=== PATIENT | male | born 1995 | race American Indian/Alaskan Native ===

== ENCOUNTER 2020-08-22 00:47 | Emergency (ER) | payer OTHER ==
--- NOTE | 2020-08-22 01:38 | Emergency Department Report ---
Blank Doc - Documentation Documentation: 24-year-old male that presents with nausea vomiting, EtOH with syncopal episode. Patient stated he is unsure how he passed out in his car. Patient otherwise denies any head injuries or headaches. 1- This initial assessment/diagnostic orders/clinical plan/ treatment(s) is/are subject to change based on pt's health status, clinical progression and re- assessment by fellow clinical providers in the ED. Further treatment and workup at subsequent clinical provers discretion. Patient/guardians urged not to elope from ED as their condition may be serious if not clinically assessed and managed. 2-labs 3-UA 4-EKG 5-CT head
[2020-08-22 02:38] LABS: Basophils % (Auto) 0.3 % (0.0-1.8); Eosinophils % (Auto) 0.1 % (0.0-4.3); Hematocrit 47.7 % (35.5-45.6); Hemoglobin 16.3 gm/dl (11.8-15.2); Lymphocytes # (Auto) 1.4 K/mm3 (1.2-5.4); Lymphocytes % (Auto) 14.8 % (13.4-35.0); Mean Corpuscular HGB Conc 34 % (32-34); Mean Corpuscular Volume 93 fl (84-94); Monocytes # (Auto) 0.5 K/mm3 (0.0-0.8); Monocytes % (Auto) 4.8 % (0.0-7.3); Platelet Count 277 K/mm3 (140-440); Red Blood Count 5.15 M/mm3 (3.65-5.03); Red Cell Distribution Width 12.8 % (13.2-15.2)
[2020-08-22 02:45] LABS: Alanine Aminotransferase 46 units/L (7-56); Albumin 4.6 g/dL (3.9-5); BUN/Creatinine Ratio 11; Blood Urea Nitrogen 10 mg/dL (9-20); Calcium 9.6 mg/dL (8.4-10.2); Hemolysis Index 6
--- NOTE | 2020-08-22 02:58 | Cat Scan Report ---
CT HEAD WITHOUT CONTRAST INDICATION / CLINICAL INFORMATION: ETOH with syncopal episode. TECHNIQUE: All CT scans at this location are performed using CT dose reduction for ALARA by means of automated exposure control. COMPARISON: None available. FINDINGS: HEMORRHAGE: None. EXTRA-AXIAL SPACES: Normal in size and morphology for the patient's age. VENTRICULAR SYSTEM: Normal in size and morphology for the patient's age. CEREBRAL PARENCHYMA: No significant abnormality. No acute territorial infarct. MIDLINE SHIFT / HERNIATION: None. CEREBELLUM / BRAINSTEM: No significant abnormality. ORBITS: Normal as visualized. SOFT TISSUES: No significant abnormality. SKULL: No significant abnormality. PARANASAL SINUSES / MASTOID AIR CELLS: Normal as visualized. ADDITIONAL FINDINGS: None. IMPRESSION: 1. No acute intracranial abnormality. Signer Name: Jimmy Lea MD Signed: 08/22/2020 2:54 AM Workstation Name: [id number]
[2020-08-22] MEDS ORDERED: SODIUM CHLORIDE 0.9% 1000 ML 1,000 ML IV ONE ×2 (03:36)
[2020-08-22] MEDS ORDERED: ONDANSETRON 4 MG/2 ML INJ IV ONE ×2 (03:36→03:47)
--- NOTE | 2020-08-22 03:43 | Emergency Department Report ---
HPI - General Chief Complaint: Alcohol Time Seen by Provider: 08/22/20 01:37 - HPI HPI: Room 43 The patient is a 24-year-old male present with chief complaint of alcohol intoxication. The patient states he was drinking "a lot" of alcohol tonight while watching the Super Bowl. The patient states he thinks he passed out in the car. Patient admits to nausea vomiting. When asked how he is feeling right now the patient states she feels "like crap." When asked what this means the patient acknowledges he feels drunk and nauseous. Patient denies consuming any other substances outside of alcohol ED Past Medical Hx - Past Medical History Previous Medical History?: No - Surgical History Past Surgical History?: Yes Additional Surgical History: Navel surgery - Family History Family history: no significant - Social History Smoking Status: Never Smoker Substance Use Type: None (Denies illicit drug use), Alcohol - Medications Home Medications: Home Medications Medication Instructions Recorded Confirmed Last Taken Type Ondansetron [Zofran ODT TAB] 8 mg PO Q8HR #20 tab.rapdis 08/22/20 Unknown Rx ED Review of Systems ROS: Stated complaint: ETOH Other details as noted in HPI Constitutional: no symptoms reported Eyes: denies: eye pain ENT: denies: throat pain Respiratory: no symptoms reported Cardiovascular: denies: chest pain Endocrine: no symptoms reported Gastrointestinal: nausea, vomiting Genitourinary: denies: dysuria Musculoskeletal: denies: back pain Neurological: denies: headache Physical Exam - Physical Exam Vital Signs: Vital Signs 08/22/20 01:36 Temperature 98.1 F Pulse Rate 82 Respiratory 17 Rate Blood Pressure 108/71 O2 Sat by Pulse 96 Oximetry Physical Exam: GENERAL: The patient is well-developed well-nourished male lying on stretcher awakens with tactile stimuli. [] HEENT: Normocephalic. Atraumatic. Extraocular motions are intact. Patient has moist mucous membranes. NECK: Supple. Trachea midline CHEST/LUNGS: Clear to auscultation. There is no respiratory distress noted. HEART/CARDIOVASCULAR: Regular. There is no tachycardia. There is no gallop rub or murmur. ABDOMEN: Abdomen is soft, nontender. Patient has normal bowel sounds. There is no abdominal distention. SKIN: There is no rash. There is no edema. There is no diaphoresis. NEURO: The patient is asleep but awakens to tactile stimuli and is oriented. The patient is cooperative. The patient has no focal neurologic deficits. The patient has normal speech MUSCULOSKELETAL: There is no evidence of acute injury. ED Course Vital Signs 08/22/20 01:36 Temperature 98.1 F Pulse Rate 82 Respiratory 17 Rate Blood Pressure 108/71 O2 Sat by Pulse 96 Oximetry - Reevaluation(s) Reevaluation #1: 08/22/20 05:33 Patient states his nausea has improved ED Medical Decision Making - Lab Data Result diagrams: 08/22/20 01:43 08/22/20 01:43 Laboratory Tests 08/22/20 08/22/20 08/22/20 01:43 01:43 01:43 WBC 9.4 RBC 5.15 H Hgb 16.3 H Hct 47.7 H MCV 93 MCH 32 MCHC 34 RDW 12.8 L Plt Count 277 Lymph % (Auto) 14.8 [place] % (Auto) 4.8 Eos % (Auto) 0.1 Baso % (Auto) 0.3 Lymph # (Auto) 1.4 [place] # (Auto) 0.5 Eos # (Auto) 0.0 Baso # (Auto) 0.0 Seg Neutrophils % 80.0 H Seg Neutrophils # 7.6 Sodium 140 Potassium 3.9 Chloride 101.4 Carbon Dioxide 29 Anion Gap 14 BUN 10 Creatinine 0.9 Estimated GFR > 60 BUN/Creatinine Ratio 11 Glucose 105 H Calcium 9.6 Total Bilirubin 0.30 AST 39 ALT 46 Alkaline Phosphatase 71 Total Protein 7.2 Albumin 4.6 Albumin/Globulin Ratio 1.8 Salicylates < 0.3 L Acetaminophen Plasma/Serum Alcohol 08/22/20 08/22/20 01:43 01:43 WBC RBC Hgb Hct MCV MCH MCHC RDW Plt Count Lymph % (Auto) [place] % (Auto) Eos % (Auto) Baso % (Auto) Lymph # (Auto) [place] # (Auto) Eos # (Auto) Baso # (Auto) Seg Neutrophils % Seg Neutrophils # Sodium Potassium Chloride Carbon Dioxide Anion Gap BUN Creatinine Estimated GFR BUN/Creatinine Ratio Glucose Calcium Total Bilirubin AST ALT Alkaline Phosphatase Total Protein Albumin Albumin/Globulin Ratio Salicylates Acetaminophen 5.0 L Plasma/Serum Alcohol 0.11 H - Differential Diagnosis Alcohol intoxication Critical care attestation.: If time is entered above; I have spent that time in minutes in the direct care of this critically ill patient, excluding procedure time. ED Disposition Clinical Impression: Alcohol intoxication Disposition: DC-01 TO HOME OR SELFCARE Is pt being admited?: No Does the pt Need Aspirin: No Condition: Stable Instructions: Binge-Drinking Information, Adult Additional Instructions: Return to the emergency department should you develop worsening symptoms, in ability to tolerate food or liquids, high fever or any other concerns Prescriptions: Ondansetron [Zofran ODT TAB] 8 mg PO Q8HR #20 tab.rapdis Referrals: [facility] [Provider Group] - 3-5 Days Time of Disposition: 05:36
[2020-08-22] MEDS ORDERED: SODIUM CHLORIDE 0.9% 1000 ML 2,000 ML ONE (03:45)
[2020-08-22] MEDS ORDERED: ONDANSETRON 4 MG/2 ML INJ ONE ×2 (03:45)
[2020-08-22] MEDS ORDERED: SODIUM CHLORIDE 0.9% 1000 ML 2,000 ML IV ONE (03:48)
[2020-08-22 06:22] VITALS: BP 112/75
== END 2020-08-22 06:20 | disposition home or self-care (01) ==
LOC: ED 00:47
DX: F10.929 Alcohol use, unspecified with intoxication, unspecified (principal); Z79.899 Other long term (current) drug therapy; Z98.890 Other specified postprocedural states
CPT/HCPCS: 36415; 70450; 80053; 85025; 93005; 96361; 96374; 99284; J2405; J7030; 80320; 96365; 96375; G0480